=== PATIENT | female | born 1970 | race Caucasian/White ===

== ENCOUNTER 2019-03-04 15:21 | Day surgery (SDC) | payer BC ==
[2019-02-27 15:35] VITALS: BMI 25.9
--- NOTE | 2019-03-04 07:28 | HP ---
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, Calcaneal Spur) - Smoking History Smoking history: Former smoker Have you smoked in the past 12 months: No - Alcohol/Substance Use Hx Alcohol Use: Yes (WINE WITH DINNER) History of Substance Use: reports: None - Social History ADL: Independent Home Medications - Allergies Allergies/Adverse Reactions: Allergies Allergy/AdvReac Type Severity Reaction Status Date / Time meperidine [From Demerol] AdvReac Verified 02/27/19 15:38 - Home Medications Home Medications: Ambulatory Orders Albuterol Sulfate [Proventil Hfa] 2 each PO PRN 02/27/19 Alprazolam 0.5 mg PO PRN 02/27/19 Ascorbic Acid [Vitamin C] 1 tab PO DAILY 02/27/19 Beclomethasone Dipropionate [Qvar] 8.7 gm IH PRN 02/27/19 Cholecalciferol (Vitamin D3) [Vitamin D3] 2,000 iu PO DAILY 02/27/19 Sumatriptan 1 mg .ROUTE PRN 02/27/19 Family Medical History Family History: Unremarkable Review of Systems - Review of Systems Constitutional: reports: No Symptoms Eyes: reports: No Symptoms, Photophobia HENT: reports: No Symptoms Neck: reports: No Symptoms Cardiovascular: reports: No Symptoms Respiratory: reports: No Symptoms Gastrointestinal: reports: No Symptoms Genitourinary: reports: No Symptoms Breasts: reports: No Symptoms Reported Musculoskeletal: reports: No Symptoms Integumentary: reports: No Symptoms Endocrine: reports: No Symptoms Hematology/Lymphatic: reports: No Symptoms Psychiatric: reports: No Symptoms Physical Examination Constitutional: Yes: Well Nourished, No Distress, Calm Eyes: Yes: WNL, Conjunctiva Clear, EOM Intact HENT: Yes: WNL, Atraumatic, Normocephalic Neck: Yes: WNL, Supple, Trachea Midline Cardiovascular: Yes: WNL, Pulse Irregular (rate controlled afib) Respiratory: Yes: WNL, Regular, CTA Bilaterally Gastrointestinal: Yes: WNL, Normal Bowel Sounds, Soft, Abdomen, Obese ...Rectal Exam: Yes: Deferred Breast(s): Yes: WNL Musculoskeletal: Yes: WNL Extremities: Yes: WNL Edema: No Peripheral Pulses WNL: Yes Integumentary: Yes: WNL Neurological: Yes: WNL, Alert, Oriented, Pre-Existing Deficit (left foot drop) ...Motor Strength: LLE (Left foot drop) Imaging - Results Chest X-ray: Pending MRI: Report Reviewed Problem List - Problems (1) Degenerative lumbar spinal stenosis Code(s): M48.061 - SPINAL STENOSIS, LUMBAR REGION WITHOUT NEUROGENIC MARY (2) HLD (hyperlipidemia) Code(s): E78.5 - HYPERLIPIDEMIA, UNSPECIFIED (3) Afib Code(s): I48.91 - UNSPECIFIED ATRIAL FIBRILLATION (4) Sick sinus syndrome Code(s): I49.5 - SICK SINUS SYNDROME (5) Obesity Code(s): E66.9 - OBESITY, UNSPECIFIED Assessment/Plan 60 yo male presents to [facility] for scheduled elective repair of his lumbar spondylolithesis. Radicular pain and associated LEFT foot drop. NPO IVF GI DVT PPX Consent obtained after risks, benefits and alternatives explained by Dr. Triana.
--- NOTE | 2019-03-04 11:09 | HP ---
History & Physical Update - History History: No Change - Physical Physical: No Change - Assessment Assessment: No Change - Plan Plan: No Change (Intial H&P is complete and accurate/UTD. no new complaints or medications.)
--- NOTE | 2019-03-04 13:42 | OP ---
Operative Note - Note: Operative Date: 03/04/19 Pre-Operative Diagnosis: Cervical stenosis w/ UE radiculopathy (~ 7 years per patient) Operation: ACDF C5/6, allograft implant, neuromonitoring Post-Operative Diagnosis: Same as Pre-op Surgeon: Arnoldo Triana Job Recruiter: Daniel Palmer Anesthesiologist/CARDIOVASCULAR LAB DIRECTOR: Damián Castellanos Anesthesia: General (MCP block) Specimens Removed: C5/6 Estimated Blood Loss (mls): 10 Fluid Volume Replaced (mls): 600 Operative Report Dictated: Yes
--- NOTE | 2019-03-04 13:44 | SURG ---
Surgery Wastewater Design Engineer Note Wastewater Design Engineer: Daniel Palmer PA-C Date of Service: 03/04/19 Diagnosis: Cervical stenosis with upper extremity radiculopathy/myelopathy (about 7 years) Procedure: Anterior cervical discectomy fusion C5/6, allograft implant, neuromonitoring I was present for the entirety of the operative procedure. For further detail, please refer to operative report. Visit type - Case Type Case Type: Scheduled - New patient This patient is new to me today: Yes Date on this admission: 03/04/19
[2019-03-04] MEDS: ACETAMINOPHEN 1000 MG/100 ML VIAL (NON FORMULARY) IVPB ONE ×2 (14:00→15:59)
[2019-03-04] MEDS: diazePAM 5 MG TABLET PO ONE ×2 (14:35→16:00)
[~2019-03-04 15:21] MED LIST: ACETAMINOPHEN INJECTION 100 ML IVPB ONE; BUPIVACAINE HCL/PF 0.5% (5 MG/ML) 30 ML VIAL IJ ONE; CEFAZOLIN 1 GM in DEXTROSE 5%-WATER - 100 ML IVPB ONE; DEXAMETHASONE SOD PHOSPHATE 4 MG/1 ML VIAL ONE; DEXAMETHASONE SOD PHOSPHATE/PF 10 MG/ML SDV ONE; KETOROLAC TROMETHAMINE 30 MG/1 ML VIAL IVPUSH PRN; KETOROLAC TROMETHAMINE 30 MG/1 ML VIAL ONE; LACTATED RINGERS SOLUTION 1,000 ML IV SCH; LIDOCAINE 1%/EPI 1:100000 (20 ML MULTI DOSE VIAL) INF ONE; LIDOCAINE 1%/EPI 1:100000 (20 ML MULTI DOSE VIAL) ONE; MIDAZOLAM HCL 2 MG/2 ML SINGLE DOSE VIAL ONE; ONDANSETRON 4 MG/2 ML VIAL IVPUSH PRN; ONDANSETRON 4 MG/2 ML VIAL ONE; PROPOFOL 20 ML ONE; SODIUM CHLORIDE 0.9% P/F 10 ML VIAL IJ ONE; ceFAZolin SODIUM 1 GM VIAL ONE; diazePAM 5 MG TABLET ONE; oxyCODONE HCL 5 MG TABLET ONE; oxyCODONE HCL 5 MG TABLET PO PRN
[2019-03-04] MEDS ORDERED: ONDANSETRON 4 MG/2 ML VIAL IVPUSH PRN (15:54)
[2019-03-04] MEDS: oxyCODONE HCL 5 MG TABLET PO PRN ×2 (17:29→20:39)
[2019-03-04] MEDS: KETOROLAC TROMETHAMINE 30 MG/1 ML VIAL IVPUSH PRN (17:35)
[2019-03-04] MEDS: CEFAZOLIN 1 GM/D5W 1 GM/50 ML BAG IVPB SCH (17:35)
--- NOTE | 2019-03-04 18:05 | OP ---
DATE OF OPERATION: 03/04/2019 PREOPERATIVE DIAGNOSIS: C5-6 herniated disk. POSTOPERATIVE DIAGNOSIS: C5-6 herniated disk. PROCEDURE PERFORMED: 1. Anterior cervical diskectomy and fusion C5-6. 2. Placement of instrumentation C5-6. 3. Placement of prosthetic cage. SURGEON: Arnoldo Triana MD TURNER MACHINE: TOMI Sow ESTIMATED BLOOD LOSS: 50 mL. INTRAVENOUS FLUIDS: Per anesthesia. ANESTHESIA: General/MCP block. COMPLICATIONS: There were none. DISPOSITION: Patient was brought to the PACU in stable condition. INDICATIONS FOR SURGERY: Patient is a 48-year-old female who has been suffering from pain from her neck down her arms. X-rays and MRI were completed, which noted that she had a herniated disk at C5-6 with pain for her neck down her right arm. She had gone through an exhaustive course of treatment for this, which included medications, physical therapy as well as injections. Unfortunately, her pain continued to persist despite all this. At this point, risks, benefits, alternatives were discussed, and the patient consented to surgery. DESCRIPTION OF PROCEDURE: Patient was brought to the operating room by anesthesia staff. After appropriate patient identification was performed, general anesthesia was given. MCP block was also given. Patient was placed supine on the OR bed with her arms tucked on the side. All areas of bony prominences well padded at this time. A needle was taped onto her neck to umu off the C5-6 level. X-ray was taken to confirm this was correct. Needle was removed, and 10 mL of lidocaine with epinephrine was injected into her neck. At this time, her neck was prepped and draped in a sterile fashion. At this point, a time-out was completed. An incision was made on the left side of her neck. Dissection was carried down to the platysma. Platysma was cut in line with the skin incision. Next, an interval between the sternocleidomastoid and strap muscles was developed. Next, the interval between the carotid sheath, trachea, and esophagus was developed. Peanuts were used to elevate off the prevertebral fascia. A needle was placed into the C5-6 disk. X-ray was taken to confirm this was correct. Needle was removed. Longus coli muscles were elevated off. Retractor blades were placed in. A [place] was placed into the body of C5 and C6. A knife was used to incise the disk, and distraction was applied. Using a series of pituitaries, Kerrisons, and curettes, a diskectomy was completed. The endplates were decorticated at this time. Size 7 cages filled with bone graft was placed in. A screw was placed into the body of C5. A screw was placed into the body of C6. AP and lateral x-rays confirmed the instrumentation to be in good position. Final tightening was performed. The platysma was closed with 2-0 Vicryl suture, the skin was closed with 3-0 Monocryl suture. Dermabond was applied. Steri-Strips were applied. A sterile dressing was applied. Patient placed supine on the OR bed, brought to the PACU in stable condition. Jennifer MCMANUS/[id number]
[2019-03-04] MEDS ORDERED: ALPRAZolam 0.25 MG TABLET PO PRN (23:55)
[2019-03-04] MEDS ORDERED: BENZOCAINE/MENTH/CETYLPYRD CL 1 EACH LOZENGE MM PRN (23:55)
[2019-03-05] MEDS: KETOROLAC TROMETHAMINE 30 MG/1 ML VIAL IVPUSH PRN ×2 (00:14→06:43)
[2019-03-05] MEDS: CEFAZOLIN 1 GM/D5W 1 GM/50 ML BAG IVPB SCH (02:30)
[2019-03-05] MEDS: diazePAM 2 MG TABLET PO PRN ×2 (06:44→14:02)
--- NOTE | 2019-03-05 08:22 | PN ---
Progress Note (short form) - Note Progress Note: SURGERY 48yo F s/p C5-6 ACDF POD 1, pt seen and examined at bedside. Pt complaining of sore throat and neck pain, but states it is controlled with pain meds. Pt states that she is tolerating liquids. Pt ambulating and urinating well. Pt denies fever, chills, n/v, cp, sob. Last Vital Signs Temp Pulse Resp BP Pulse Ox 98.0 F 78 18 129/68 95 03/05/19 06:00 03/05/19 06:00 03/05/19 06:00 03/05/19 06:00 03/05/19 06:00 PE: Gen: A&O X3 Resp: breathing comfortably Neck: incision clean no erythema or discharge, mild tenderness to palpation anterior neck. Ext: no weakness or numbness, no edema Problem List - Problems (1) Cervical herniated disc Assessment/Plan: Plan -will plan for pt to go home later today, will adv to soft diet -pt should follow up with Dr. Triana in 2 weeks call for appt. -pain med Rx was sent -soft collar for comfort Pt discussed with Dr. Triana who agrees with plan Code(s): M50.20 - OTHER CERVICAL DISC DISPLACEMENT, UNSP CERVICAL REGION
[2019-03-05] MEDS ORDERED: MAG HYDROX/AL HYDROX/SIMETH 30 ML UNIT-DOSE CUP PO ONE (08:30)
[2019-03-05] MEDS: oxyCODONE HCL 5 MG TABLET PO PRN (12:00)
--- NOTE | 2019-03-05 14:14 | PN ---
Progress Note (short form) - Note Progress Note: ANESTHESIA POSTOP 48 yo female POD#1 s/p ACDF Patient doing well. Walking with PT. Pain adequately controlled. Tolerating PO VSS, Afebrile Continue current care. No anesthetic complications.
[2019-03-05 14:24] VITALS: BP 126/70; PULSE 87; TEMP 97.8
== END 2019-03-05 14:51 | disposition home or self-care (01) ==
LOC: FM/S 15:21 → FASUSAT 15:21
PROVIDERS: ATTEND Orthopaedic Surgery Orthopaedic Surgery of the Spine
PROC: 0RG10A0 Fusion of Cervical Vertebral Joint with Interbody Fusion Device, Anterior Approach, Anterior Column, Open Approach (ICD-10-PCS; 2019-03-04)
PROC: 0RG10K0 Fusion of Cervical Vertebral Joint with Nonautologous Tissue Substitute, Anterior Approach, Anterior Column, Open Approach (ICD-10-PCS; 2019-03-04)
PROC: 0RB30ZZ Excision of Cervical Vertebral Disc, Open Approach (ICD-10-PCS; principal; 2019-03-04 12:33)
DX: M50.222 Other cervical disc displacement at C5-C6 level (principal)
CPT/HCPCS: 22551; 22845; 22853; C1889; 72050-TC-FY; 84703; 94760; 97116-GP; 97162-GP; J0131